=== PATIENT | female | born 1980 | race Two or more races ===

== ENCOUNTER 2024-01-06 16:49 | Outpatient (CLI) | payer OTHER ==
--- NOTE | 2024-01-07 17:59 | Ultrasound Report ---
PROCEDURE: Pelvic w/Transvaginal INDICATIONS: PELVIC PAIN TECHNIQUE: Real-time scanning was performed of the pelvic organs, with image documentation. Additional endovagi nal scanning was necessary due to incomplete visualization of the adnexal and endometrial structures by transabdominal scanning. COMPARISON: None. FINDINGS: Uterus: Uterus is anteverted and normal in size at 9.5 x 3.9 x 5.9 cm. The myometrium is homogeneou s. The endometrium measures 7.5 mm in combined thickness. Ovaries: The right ovary measures 3.5 x 1.8 x 2 point cm, with a calculated ovarian volume of 8.3 cc . The left ovary measures 1.7 x 2.2 x 1.9 cm, with a calculated ovarian volume of 3.9 cc. The ovari es have a normal sonographic appearance. Less than 12 follicles can be seen in each ovary. No adnex al masses are seen. No cystic lesions measuring greater than 3 cm. Other: No pathologic free abdominal or pelvic fluid. IMPRESSION: Unremarkable exam. Reviewed by: Carol Tate MD on 01/07/2024 5:57 PM PDT Approved by: Carol Tate MD on 01/07/2024 5:57 PM PDT Station ID: [id number]
== END 2024-01-06 16:50 | disposition home or self-care (01) ==
LOC: DI 16:49
PROVIDERS: ATTEND Nurse Practitioner Family
DX: R10.2 Pelvic and perineal pain (principal)